=== PATIENT | male | born 1985 | race Hispanic/Latino ===

== ENCOUNTER 2016-11-16 07:27 | Emergency (ER) | payer OTHER ==
[~2016-11-16] VITALS: Ht 180.3 cm; Wt 132.8 kg
[~2016-11-16 07:27] MED LIST: CEFU500T PO; HYDR-4003 PO; OMEP20TA86 PO; ONDA-53 PO
[2016-11-16 07:35] VITALS: BP 135/78; RESP 16; O2SAT 98
--- NOTE | 2016-11-16 08:19 | ED.REPORT ---
[id number] Date of Service Nov 16, 2016 ED Provider: Roxy Lee MD Patient is a 31 year old male who presents to the ED complaining of a sore throat onset yesterday. He describes the pain as sharp and stabbing. He denies fevers, chills, abdominal pain, ear pain, nausea, vomiting, cough, rhinorrhea, or any other symptoms. He did not take any home medications. Rapid strep test was negative. Patient does not have any known sick contacts. Nursing Notes Stated Complaint: THROAT PAIN Chief Complaint: ENT & Mouth Nursing Notes Reviewed: Yes Allergies: Coded Allergies: Penicillins (Verified Allergy, Unknown, Rash, 11/04/14) Scheduled Cefuroxime Axetil (Ceftin) 500 Mg Tablet 500 MG PO BID Omeprazole (Omeprazole) 20 Mg Tablet.dr 20 MG PO BID Ondansetron (Ondansetron) 4 Mg Tablet 4 MG PO Q4 Hours Scheduled PRN Hydrocodone-Acetaminophen 5-325 mg (Hydrocodone-Acetaminophen 5-325 mg) 1 Each Tablet 1 TABLET PO Q4H PRN PRN For Pain General Time Seen by Provider: 07:46 Chief Complaint Sore throat Hx Obtained From: Patient Arrived By: Walk-in Onset Occurred: Yesterday Symptom Duration: Since onset Progression Since Onset: Gradually worsening Quality: Sharp, Stabbing Severity: Current: Moderate Severity: Maximum: Moderate Context: Immunization Status General: Unknown Recent Healthcare: No recent doctor visit, No recent hospitalization Past Medical History Past Medical History Denies Past Surgical History None Family History Mother- DMII, father-HTN, brother-HTN, DMII Smoking History Current Every Day Smoker Social History Alcohol Use: "Social" Drug Use: THC Ambulatory Status Independent Review of Systems Constitutional: Denies: Chills, Fever Ears / Nose / Throat: Reports: Sore throat, Throat pain, Denies: Earache bilateral Respiratory: Denies: Non-productive cough GI: Denies: Abdominal pain, Nausea, Vomiting Complete sys rev & neg: except as marked. Allergy / Immune: Denies: Rhinorrhea Physical Exam Initial Vital Signs Vital Signs (First) Date Time Temp Pulse Resp B/P Pulse Ox O2 Delivery O2 Flow Rate FiO2 11/16/16 07:35 36.7 73 16 135/78 98 Room Air Initial VS: Reviewed, Vital signs normal General/Constitutional: Awake, Alert, No acute distress Neck: Atraumatic Mild left sided adenopathy, Respiratory / Chest: Atraumatic, Breath sounds NL, Breath sounds = bilat, No respiratory distress Cardiovascular: Heart rate NL, Regular rhythm, Heart sounds NL Skin: Color NL, No rash, Warm, Dry Neurologic: Oriented X3, Speech NL Head / Eyes: Atraumatic, Normocephalic, EOMI ENT: Atraumatic, No peritonsillar abscess Mild erythema of the L TM, no signs of infection R TM clear Interpretation & Diagnostics Interpretation & Diagnostics: Strep negative Re-Evaluation & MDM Re-Evaluation/Progress : Time of Eval: 08:25 Re-Evaluation/Progress Note: Discussed plan for discharge. Patient understands and agrees with plan. All questions addressed at this time. Counseled Regarding: Diagnosis, Lab results, Need for follow-up, When/why to return to ED Patient Discharge & Departure Impression: Primary Impression: Sore throat Additional Impression: Cervical adenopathy Disposition: Home Discharge Condition All VS Reviewed: Yes Condition: Stable Patient Instructions: Cigarette Smoking and Your Health (GEN), How to Stop Smoking (ED) Additional Instructions: thanks for letting me check you out today All looks OK your ear is a little red, but not infected. Your Left tonsil looks normal but you do have some swollen lymph nodes on that side. Your strep test was negative. this is not strep throat or an abscess. It may be just local irritation. Give it a couple days to improve. Use ibuprofen as needed. I hope you feel better! Referrals: Tamar Hill MD Attestation Portions of this note were transcribed by Ney Clifton. I, Dr. Lee personally performed the history, physical exam and medical decision-making; I reviewed and confirmed the accuracy of the information in the transcribed note. Signed by: Sara Gomez, 11/16/16 copies to: Tamar Hill MD,Roxy Garcia MD Nov 16, 2016 08:19 NEY CLIFTON Nov 16, 2016 08:26
[2016-11-16 08:51] VITALS: BP 135/78; PULSE 73; RESP 16; O2SAT 98
== END 2016-11-16 08:51 | disposition home or self-care (01) ==
LOC: SED 07:27
DX: R07.0 Pain in throat (principal); R59.0 Localized enlarged lymph nodes; F12.10 Cannabis abuse, uncomplicated; Z88.0 Allergy status to penicillin